=== PATIENT | female | born 1995 ===

== ENCOUNTER 2021-11-05 12:37 | Outpatient (CLI) | payer OTHER | END 2021-11-05 13:27 | disposition home or self-care (01) | LOC: PRENATAL 12:37 | PROVIDERS: ATTEND Obstetrics & Gynecology Maternal & Fetal Medicine | DX: O34.219 Maternal care for unspecified type scar from previous cesarean delivery (principal); O14.90 Unspecified pre-eclampsia, unspecified trimester; Z3A.13 13 weeks gestation of pregnancy ==

== ENCOUNTER 2021-12-18 12:57 | Outpatient (CLI) | payer OTHER | END 2021-12-18 14:25 | disposition home or self-care (01) | LOC: PRENATAL 12:57 | PROVIDERS: ATTEND Obstetrics & Gynecology Maternal & Fetal Medicine | DX: O35.0XX0 Maternal care for (suspected) central nervous system malformation in fetus, not applicable or unspecified (principal); O34.219 Maternal care for unspecified type scar from previous cesarean delivery; O14.90 Unspecified pre-eclampsia, unspecified trimester; Z3A.19 19 weeks gestation of pregnancy ==

== ENCOUNTER 2022-03-06 10:00 | Outpatient (CLI) | payer OTHER | END 2022-03-06 11:28 | disposition home or self-care (01) | LOC: PRENATAL 10:00 | PROVIDERS: ATTEND Obstetrics & Gynecology Maternal & Fetal Medicine | DX: O26.849 Uterine size-date discrepancy, unspecified trimester (principal); O36.8199 Decreased fetal movements, unspecified trimester, other fetus; O41.00X0 Oligohydramnios, unspecified trimester, not applicable or unspecified; O34.219 Maternal care for unspecified type scar from previous cesarean delivery; Z3A.30 30 weeks gestation of pregnancy ==

== ENCOUNTER 2022-03-30 08:08 | Outpatient (CLI) | payer OTHER | END 2022-03-30 10:00 | disposition home or self-care (01) | LOC: PRENATAL 08:08 | PROVIDERS: ATTEND Obstetrics & Gynecology Maternal & Fetal Medicine | DX: O26.849 Uterine size-date discrepancy, unspecified trimester (principal); O36.8199 Decreased fetal movements, unspecified trimester, other fetus; O41.00X0 Oligohydramnios, unspecified trimester, not applicable or unspecified; O34.219 Maternal care for unspecified type scar from previous cesarean delivery; Z3A.34 34 weeks gestation of pregnancy ==